=== PATIENT | male | born 1985 | race Caucasian/White ===

== ENCOUNTER 2023-08-11 14:48 | Inpatient (IN) | payer OTHER ==
[2023-08-11] MEDS ORDERED: NA CHLORIDE 0.9% 1,000 ML ONE (16:13)
[2023-08-11] MEDS ORDERED: KETOROLAC 30 MG/ML INJ ONE (16:13)
[2023-08-11 16:19] LABS: Absolute Basophils 0.1 K/uL (0-0.5); Absolute Eosinophils 0.1 K/uL (0-0.5); Absolute Lymphocytes (CBC) 0.9 K/uL (0.7-4.9); Absolute Monocytes 1.6 K/uL (0.1-1.3); Absolute Neutrophil 21.1 K/uL (1.8-8.0); Basophils % 0.2 % (0-1.3); Eosinophils % 0.3 % (0-4.4); Hematocrit 43.7 % (39.6-49.0); Hemoglobin 14.6 g/dL (13.6-17.9); Lymphocytes % 3.9 % (15.3-44.8); MCH 29.1 pg (27.0-35.0); MCHC 33.5 g/dL (32.0-36.0); MCV 87.1 fL (80-100); MPV 8.4 fL (7.6-11.3); Monocytes % 6.7 % (3.3-12.3); Neutrophils % 88.9 % (41.7-73.7); Nucleated Red Blood Cells % 0.1 % (0-0); Platelets 312 thou/uL (152-406); RBC Red Blood Cell Count 5.02 M/uL (4.33-5.43); Red Cell Distribution Width 13.4 % (12.1-15.2)
[2023-08-11 16:39] LABS: Albumin 3.7 g/dL (3.4-5.0); Albumin/Globulin Ratio 0.8 (1.1-1.8); Anion Gap 10.7 mEq/L (5.0-15.0); Bilirubin Total 1.9 mg/dL (0.2-1.0); Globulin 4.4 g/dL (2.3-3.5); Potassium 3.7 mEq/L (3.5-5.1); Protein, Total 8.1 g/dL (6.4-8.2)
--- NOTE | 2023-08-11 17:21 | RAD REPORT ---
EXAM DESCRIPTION: US - Extremity Venous Uni Ltd - 08/11/2023 5:15 pm CLINICAL HISTORY: Pain, swelling COMPARISON: None. TECHNIQUE: Real-time sonographic evaluation of the left lower extremity deep venous system was perfo rmed. FINDINGS: Normal compressibility, flow augmentation, phasic flow and spontaneous flow is identified in the left lower extremity deep venous system. No intraluminal filling defects seen. IMPRESSION: No DVT in the left lower extremity.
--- NOTE | 2023-08-11 17:25 | RAD REPORT ---
EXAM DESCRIPTION: US - Extremity Nonvascular Limited - 08/11/2023 5:15 pm CLINICAL HISTORY: left lower leg swelling COMPARISON: No comparisons FINDINGS: Focused ultrasound at the medial left calf at the area of concern. Complex cystic and solid structure measuring approximately 12 cm in maximal dimension which has both a simple fluid component as well as what is probably dependent debris. This does not have any blood f low within it. IMPRESSION: Complex fluid collection at the site of concern measures approximately 12 cm in long axi s. This may represent a subacute hematoma with layering debris/clot.
[2023-08-11] MEDS ORDERED: ACETAMINOPHEN 500 MG TAB ONE (17:31)
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
--- NOTE | 2023-08-11 17:43 | ER ---
Nurse's Notes [facility] Name: Tripp Cisneros Age: 38 yrs Sex: Male : 1985 Arrival Date: 08/11/2023 Time: 14:48 Bed 19 Private MD: Diagnosis: Cellulitis of left lower limb;Cutaneous abscess of left lower limb Presentation: 08/10 15:19 Chief complaint: LLE pain, redness, and swelling x 1 week. Coronavirus screen: At this hb time, the client does not indicate any symptoms associated with coronavirus-19. Ebola Screen: No symptoms or risks identified at this time. Initial Sepsis Screen: Does the patient meet any 2 criteria? No. Patient's initial sepsis screen is negative. Does the patient have a suspected source of infection? No. Patient's initial sepsis screen is negative. Risk Assessment: Do you want to hurt yourself or someone else? Patient reports no desire to harm self or others. Onset of symptoms was August 05, 2023. 15:19 Method Of Arrival: Ambulatory hb 15:19 Acuity: HERNAN 3 hb Triage Assessment: 15:21 General: Appears in no apparent distress. Behavior is calm, cooperative. Pain: Pain hb currently is 8 out of 10 on a pain scale. Neuro: Level of Consciousness is awake, alert, obeys commands, Oriented to person, place, time, situation. Cardiovascular: Patient's skin is warm and dry. Respiratory: Respiratory effort is even, unlabored, Respiratory pattern is regular, symmetrical. Musculoskeletal: LLE swelling and redness Reports LLE pain, redness, and swelling. Historical: - Allergies: 15:20 No Known Allergies; hb - Home Meds: 15:20 None [Active]; hb - PMHx: 15:20 None; hb - PSHx: 15:20 None; hb - Immunization history:: Adult Immunizations up to date. - Infectious Disease History:: Denies. - Social history:: Smoking status: Patient denies any tobacco usage or history of. Screenin:22 [facility] ED Fall Risk Assessment (Adult) History of falling in the last 3 months, tl4 including since admission No falls in past 3 months (0 pts) Confusion or Disorientation No (0 pts) Intoxicated or Sedated No (0 pts) Impaired Gait No (0 pts) Mobility Assist Device Used No (0 pt) Altered Elimination No (0 pt) Score/Fall Risk Level 0 - 2 = Low Risk Oriented to surroundings, Maintained a safe environment, Educated pt \T\ family on fall prevention, incl call for assistance when getting out of bed, Assessed \T\ reinforced patient's understanding of fall precautions. Abuse screen: Denies threats or abuse. Denies injuries from another. Nutritional screening: No deficits noted. Tuberculosis screening: No symptoms or risk factors identified. Assessment: 16:35 Reassessment: Patient and/or family updated on plan of care and expected duration. Pain tl4 level reassessed. Patient is alert, oriented x 3, equal unlabored respirations, skin warm/dry/pink. Pt denies any needs at this time. Family at bedside. Will continue to monitor. 17:35 Reassessment: Patient and/or family updated on plan of care and expected duration. Pain tl4 level reassessed. Patient is alert, oriented x 3, equal unlabored respirations, skin warm/dry/pink. Patient states symptoms have improved. 19:09 Reassessment: Patient and/or family updated on plan of care and expected duration. Pain tl4 level reassessed. Patient is alert, oriented x 3, equal unlabored respirations, skin warm/dry/pink. Surgery here to take patient. Pt and family updated by surgery staff. Vital Signs: 15:19 BP 159 / 78; Pulse 110; Resp 16; Temp 97.9(TE); Pulse Ox 100% on R/A; Weight 131.54 kg; hb Height 6 ft. 1 in. ; Pain 8/10; 16:30 BP 149 / 94; Pulse 114; Resp 20; Pulse Ox 98% on R/A; tl4 17:42 BP 151 / 94; Pulse 112; Resp 20; Pulse Ox 99% on R/A; tl4 18:21 BP 134 / 90; Pulse 108; Resp 18; Pulse Ox 97% on R/A; tl4 19:07 BP 139 / 95; Pulse 106; Resp 20; Temp 98.9(O); Pulse Ox 99% on R/A; Pain 0/10; tl4 15:19 Body Mass Index 38.26 (131.54 kg, 185.42 cm) hb 15:19 Pain Scale: Adult hb 19:07 Pain Scale: Adult tl4 ED Course: 14:51 Patient arrived in ED. ra3 14:53 Vasu Hammond PA is PHCP. cp 14:53 Vasu Lam MD is Attending Physician. cp 15:20 Arm band placed on. hb 15:21 Triage completed. hb 15:44 Srini Carnes, RN is Primary Nurse. tl4 16:10 CBC with Diff Sent. tl4 16:10 CMP Sent. tl4 16:10 Initial lab(s) drawn, by me, sent to lab. Inserted saline lock: 22 gauge in left tl4 forearm, using aseptic technique. Blood collected. 16:21 CMP Sent. tl4 17:18 US Extrmty Nonvasular Limited In Process Unspecified. EDMS 17:18 US Extremity Venous Unilateral Ltd In Process Unspecified. EDMS 17:42 Tushar Valentine MD is Hospitalizing Provider. cp 17:47 XRAY Tib Fib LEFT In Process Unspecified. EDMS 18:22 Patient has correct armband on for positive identification. Placed in gown. Bed in low tl4 position. Call light in reach. Side rails up X 1. Adult w/ patient. Provided Education on: ed process, call marte. Client placed on continuous cardiac and pulse oximetry monitoring. NIBP monitoring applied. Door closed. Noise minimized. Moved to private room. Warm blanket given. Pillow given. 18:23 No provider procedures requiring assistance completed. tl4 18:40 Urinalysis W/Microscopic Sent. tl4 19:04 Urinalysis w/ reflexes Sent. tl4 19:05 Ptt, Activated Sent. tl4 19:05 PT-INR Sent. tl4 19:05 Blood Culture Adult (2) Sent. tl4 19:05 Lactate w/ 2H reflex if indic. Sent. tl4 19:06 Repeat lab(s) drawn. by me, sent to lab. tl4 19:12 Patient admitted, IV remains in place. tl4 Administered Medications: 16:20 Drug: Ketorolac IVP 15 mg IVP once Route: IVP; Site: left forearm; tl4 17:34 Follow up: Response: No adverse reaction; Pain is decreased tl4 16:21 Drug: NS 0.9% IV 1000 ml IV at 1 bolus Per protocol; 1000 mL bolus Route: IV; Rate: 1 tl4 bolus; Site: left forearm; Delivery: Primary tubing; 17:34 Follow up: Response: No adverse reaction; IV Status: Completed infusion; IV Intake: tl4 1000ml 19:06 Follow up: Response: No adverse reaction; IV Status: Completed infusion; IV Intake: tl4 1000ml 17:32 Drug: Acetaminophen PO 1000 mg PO once Route: PO; tl4 18:23 Follow up: Response: No adverse reaction; Pain is decreased tl4 19:04 Drug: ceFAZolin IVPB 2 grams IVPB once over 30 mins; (mix in 100 mL NS) Route: IVPB; tl4 Infused Over: 30 mins; Site: left forearm; 19:06 Follow up: Response: No adverse reaction; IV Status: Infusion continued tl4 19:05 Drug: vancoMYCIN IVPB 1.5 grams IVPB at calculated rate once Route: IVPB; Rate: tl4 calculated rate; Site: left forearm; Delivery: Primary tubing; 19:06 Follow up: Response: No adverse reaction; IV Status: Infusion continued tl4 Medication: 18:23 VIS not applicable for this client. tl4 Intake: 17:34 IV: 1000ml; Total: 1000ml. tl4 19:06 IV: 1000ml; Total: 2000ml. tl4 Outcome: 17:42 Decision to Hospitalize by Provider. cp 19:09 Admitted to OR accompanied by nurse, via wheelchair, tl4 19:09 Condition: stable 19:09 Instructed on the need for admit, 19:18 Patient left the ED. jb4 Signatures: Dispatcher [employer] EDMS Vasu Hammond PA PA cp Elizabeth Squires RN RN hb Bryson, James, RN RN jb4 Srini Carnes RN RN tl4 Janee Arreola ra3 Corrections: (The following items were deleted from the chart) 15:21 15:19 Pulse Ox 100% RA; Temp 97.9F Temporal; hb hb
[2023-08-11 17:51] LABS: Blood Morphology Comment NOTED (NOT SEEN); Hypochromasia 1+; Platelet Estimate ADEQ; White Blood Cell Scan OK (OK)
--- NOTE | 2023-08-11 17:55 | RAD REPORT ---
EXAM DESCRIPTION: RAD - Tib Fib Left - 08/11/2023 5:45 pm CLINICAL HISTORY: Swelling;Pain COMPARISON: No comparisons FINDINGS/IMPRESSION: No acute fracture. No malalignment. No significant focal degenerative changes.
[2023-08-11] MEDS ORDERED: ONDANSETRON 4 MG/2 ML VIAL IV PRN (18:28)
[2023-08-11] MEDS ORDERED: NA CHLORIDE 0.9% 250 ML ONE (18:30)
[2023-08-11] MEDS ORDERED: NA CHLORIDE 0.9% 100 ML ONE (18:30)
[2023-08-11] MEDS ORDERED: VANCOMYCIN 500 MG/VIAL ONE (18:30)
[2023-08-11] MEDS ORDERED: VANCOMYCIN 1 GM/VIAL ONE (18:30)
[2023-08-11] MEDS ORDERED: CEFAZOLIN SODIUM 2 GM/VIAL ONE (18:31)
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
[2023-08-11] MEDS: LIDOCAINE HCL/EPINEPHRINE 20 ML MDV ONE (18:45)
[2023-08-11] MEDS: NA CHLORIDE 0.9% 1,000 ML IV SCH (19:00)
[2023-08-11] MEDS ORDERED: FENTANYL CITR 100 MCG/2 ML ONE ×2 (19:01→19:39)
[2023-08-11] MEDS ORDERED: propofoL 200 MG/20 ML VIAL IV ONE ×2 (19:01→19:32)
[2023-08-11] MEDS ORDERED: LIDOCAINE 2% MPF 5 ML VIAL ONE (19:01)
[2023-08-11] MEDS ORDERED: MIDAZOLAM HCL 2 MG/2 ML INJ ONE (19:01)
[2023-08-11] MEDS: Ringers Lactate 1,000 ML IV ONE (19:15)
[2023-08-11 19:20] LABS: PT Prothrombin Time 15.4 SECONDS (9.5-12.5); PTT, Activated Partial Thromb 30.2 SECONDS (24.3-36.9); Protime INR 1.41
[2023-08-11 19:20] LABS: Specific Gravity > 1.030 (1.005-1.030); Sqamous Epithelial <5 /HPF (None Seen); Urine Bacteria None Seen /HPF (<20); Urine Bilirubin 1+ (Negative); Urine Blood Negative (Negative); Urine Clarity Turbid (Clear); Urine Color Dark-Yellow (Yellow); Urine Culture Reflex Order NOT NEEDED; Urine Glucose NEGATIVE (Negative); Urine Ketones 2+ (Negative); Urine Micro Reflex YN NO BILL MICROSCOPIC; Urine Mucus 3+ /HPF (None Seen); Urine Nitrite NEGATIVE (Negative); Urine Protein 1+ (Negative); Urine RBC None Seen /HPF (None Seen); Urine Urobilinogen 4+ (Over) (Normal); Urine WBC <5 /HPF (<5); Urine pH 6.5 (5.0-7.0)
[2023-08-11] MEDS ORDERED: ONDANSETRON 4 MG/2 ML VIAL ONE (19:33)
--- NOTE | 2023-08-11 19:58 | P.OP ---
Preoperative diagnosis: LEFT lower leg Abscess Postoperative diagnosis: LEFT lower leg Abscess Primary procedure: Incision and Drainage of LEFT lower leg Abscess Anesthesia: GETA Estimated blood loss: ~ 5cc Specimen: Cultures Findings: ~ 12 cm multiloculated abscess of LEFT lower leg Complications: None Transferred to: Recovery Room Condition: Good
[2023-08-11] MEDS: VANCOMYCIN 500 MG in NA CHLORIDE 0.9% 100 ML IVPB ONE (20:30)
--- NOTE | 2023-08-11 20:54 | OP ---
Date of Procedure: 08/11/2023 Surgeon: Malachi Mcfarland MD, Preoperative Diagnosis: Left lower leg abscess. Postoperative Diagnosis: Left lower leg abscess. Procedure Performed: Incision and drainage of a complex multiloculated left lower extremity abscess. Anesthesia: General endotracheal. Estimated Blood Loss: Less than 5 cc. Specimen: Culture sent both aerobic, anaerobic, speciation. Findings: Approximately 12 cm multiloculated abscess of the left lower leg. Complications: None. Disposition: Patient was transferred to recovery room in good condition. Procedure In Detail: After informed consent was obtained, patient was brought to the operating room, prepped in the usual sterile fashion. After adequate anesthesia was achieved, I palpated the area t he medial lower extremity along the border of the gastrocnemius muscle on the medial aspect. Fluctua nce was appreciated. I then incised this area sharply with an 11 blade ultimately encountering a fabian y pressurized obviously infected abscess cavity, which came out under significant pressure. This was cultured both aerobic, anaerobic speciation. At this point. I extended my incision for approximatel y 6 cm and digitized the area breaking multiple loculations with additional abscess cavities encounte red. After I completely broke up all loculations with digital manipulation, I irrigated the area usi ng a pulse lavage device for approximately an 1-1/2 L of sterile saline. I then achieved hemostasis with electrocautery and packed the wound with Vashe-soaked Kerlix and sterile dressing. We used to w rap the leg and elevate. The patient tolerated the procedure well without evidence of complication a nd transferred to PACU in good condition. All counts were correct at the end of the case. MICHAEL/HERBERT Voice ID: [id number] Report ID: [id number]
[2023-08-11] MEDS ORDERED: VANCOMYCIN 1 GM in NA CHLORIDE 0.9% 250 ML IVPB SCH ×2 (21:00→23:00)
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
[2023-08-11] MEDS ORDERED: MORPHINE 2 MG/ML SYR IV PRN (22:04)
[2023-08-11] MEDS: HYDROCODONE/APAP 5/325 MG TAB PO PRN (22:49)
[2023-08-12] MEDS: ACETAMINOPHEN 325 MG TABLET PO PRN (04:42)
[2023-08-12 06:33] LABS: Absolute Eosinophils 0.2 K/uL (0-0.5); Absolute Lymphocytes (CBC) 0.5 K/uL (0.7-4.9); Absolute Monocytes 1.2 K/uL (0.1-1.3); Absolute Neutrophil 17.8 K/uL (1.8-8.0); Basophils % 0.1 % (0-1.3); Eosinophils % 0.9 % (0-4.4); Hematocrit 37.5 % (39.6-49.0); Hemoglobin 12.7 g/dL (13.6-17.9); Lymphocytes % 2.7 % (15.3-44.8); MCH 29.4 pg (27.0-35.0); MCHC 33.9 g/dL (32.0-36.0); MCV 86.8 fL (80-100); MPV 8.5 fL (7.6-11.3); Neutrophils % 90.3 % (41.7-73.7); Platelets 289 thou/uL (152-406); RBC Red Blood Cell Count 4.32 M/uL (4.33-5.43); Red Cell Distribution Width 13.2 % (12.1-15.2)
[2023-08-12 06:51] LABS: Albumin 2.6 g/dL (3.4-5.0); Albumin/Globulin Ratio 0.7 (1.1-1.8); Anion Gap 10.6 mEq/L (5.0-15.0); Bilirubin Total 1.6 mg/dL (0.2-1.0); Globulin 3.9 g/dL (2.3-3.5); Potassium 3.6 mEq/L (3.5-5.1); Protein, Total 6.5 g/dL (6.4-8.2)
[2023-08-12] MEDS: VANCOMYCIN 2 GM in NA CHLORIDE 0.9% 500 ML IVPB SCH ×2 (09:00→11:10)
[2023-08-12] MEDS: ENOXAPARIN 40 MG/0.4 ML SQ SCH (09:43)
[2023-08-12] MEDS: CEFTRIAXONE 1,000 MG in NA CHLORIDE 0.9% 50 ML IVPB SCH (09:43)
--- NOTE | 2023-08-12 10:52 | P.PN ---
Subjective Date of Service: 08/12/23 Chief Complaint: Abscess LLE Admitted with abscess, pain and swelling to the left lower extremity surgery to evaluate Teach family on dressing changes, - Physical Exam General: Alert, In no apparent distress, Oriented x3, Cooperative HEENT: Atraumatic, Normocephalic Neck: Supple, 2+ carotid pulse no bruit Respiratory: Clear to auscultation bilaterally, Normal air movement Cardiovascular: Regular rate/rhythm, Normal S1 S2 Capillary refill: <2 Seconds Gastrointestinal: Soft and benign, W/out hepatosplenomegaly, No tenderness Musculoskeletal: Swelling, Erythema, Tenderness, Warmth Integumentary: Tenderness/swelling, Erythema, Warmth Neurological: Normal speech, Normal strength at 5/5 x4 extr, Cranial nerves 3-12 intact, Normal reflexes 2+, Normal affect Lymphatics: No axilla or inguinal lymphadenopathy Review of Systems Per HPI Physical Examination - Vital Signs Temperature: 98.0 F Blood Pressure: 131/60 Pulse: 111 Respirations: 14 Pulse Ox (%): 93 - Studies Laboratory Data (last 24 hrs) 08/11/23 08/11/23 16:09 16:09 WBC 23.70 H Hgb 14.6 Hct 43.7 Plt Count 312 Sodium 136 Potassium 3.7 BUN 12 Creatinine 1.13 Glucose 119 H Total Bilirubin 1.9 H AST 13 L ALT 30 Alkaline Phosphatase 89 Assessment And Plan - Plan Assessment plan Left lower extremity cellulitis versus abscess Surgery consulted S/p debridement Ultrasounds negative for DVT Pain control Started on IV antibiotic vancomycin, ceftriaxone Continue IV antibiotic for now Follow wound cultures, Teach family to do dressing changes, Will need to follow-up with surgery in 1 week Leukocytosis Continue antibiotics Will obtain cultures Change antibiotic as per sensitivity GI/DVT prophylaxis Discharge Plan: Home - Code Status/Comfort Care Code Status: Full Code Critical Care: No Time Spent Managing PTS Care (In Minutes): 35
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
[2023-08-12] MEDS: MORPHINE 4 MG/ML SYR IV PRN (14:11)
--- NOTE | 2023-08-12 14:12 | EKG ---
Test Date: 2023-08-11 Test Time: 18:30:27 Union Organiser: KRISTINA MEASUREMENT RESULTS: Intervals: Rate: 105 WI: 112 QRSD: 100 QT: 356 QTc: 470 [place]: P: 59 WI: 112 QRS: 88 T: 56 INTERPRETIVE STATEMENTS: Sinus tachycardia Otherwise normal ECG No previous ECG available for comparison Electronically Signed On 08-12-23 14:10:00 CDT by Yimi Dunn
[2023-08-12] MEDS: FUROSEMIDE 40 MG/4 ML VIAL ONE (23:56)
[2023-08-13] MEDS: FUROSEMIDE 40 MG/4 ML VIAL IV ONE (00:04)
[2023-08-13] MEDS: ALBUTEROL 2.5 MG/3 ML NEB SOL NEB ONE (00:38)
[2023-08-13] MEDS: IPRATROPIUM BROM 0.5MG/2.5ML NEB ONE (00:38)
[2023-08-13] MEDS: ALBUTEROL 2.5 MG/3 ML NEB SOL NEB PRN (01:29)
[2023-08-13] MEDS: IPRATROPIUM BROM 0.5MG/2.5ML NEB PRN (01:29)
[2023-08-13 06:35] LABS: Absolute Eosinophils 0.1 K/uL (0-0.5); Absolute Monocytes 1.2 K/uL (0.1-1.3); Absolute Neutrophil 28.2 K/uL (1.8-8.0); Basophils % 0.1 % (0-1.3); Eosinophils % 0.5 % (0-4.4); Hematocrit 34.8 % (39.6-49.0); Hemoglobin 11.9 g/dL (13.6-17.9); Lymphocytes % 3.2 % (15.3-44.8); MCH 29.7 pg (27.0-35.0); MCHC 34.1 g/dL (32.0-36.0); MCV 86.9 fL (80-100); MPV 8.2 fL (7.6-11.3); Neutrophils % 92.2 % (41.7-73.7); Nucleated Red Blood Cells % 0.1 % (0-0); Platelets 341 thou/uL (152-406); Red Cell Distribution Width 13.6 % (12.1-15.2)
[2023-08-13 06:54] LABS: Albumin 2.1 g/dL (3.4-5.0); Albumin/Globulin Ratio 0.5 (1.1-1.8); Anion Gap 9.8 mEq/L (5.0-15.0); Globulin 4.2 g/dL (2.3-3.5); Potassium 3.8 mEq/L (3.5-5.1); Protein, Total 6.3 g/dL (6.4-8.2)
[2023-08-13 08:17] LABS: Band Neutrophils 9 % (0-1); Differential Total Cells Count 100; Segmented Neutrophils 80 % (40-80)
[2023-08-13 08:18] LABS: Blood Morphology Comment NOT SEEN (NOT SEEN); Lymphocytes 3 % (15-42); Monocytes 6 % (0-10); Myelocytes 1 % (0-0); Platelet Estimate ADEQ; Platelets Clumped FIBRIN PRESENT
[2023-08-13] MEDS: PIPER TAZO 3.375 GM in NA CHLORIDE 0.9% 100 ML IV SCH (09:00)
[2023-08-13] MEDS: NA CHLORIDE 0.9% 1,000 ML IV SCH (09:00)
--- NOTE | 2023-08-13 11:15 | RAD REPORT ---
EXAM DESCRIPTION: CT - Chest For Pe Angio - 08/13/2023 11:09 am CLINICAL HISTORY: Chest pain. Hemoptysis COMPARISON: No comparisons TECHNIQUE: CT angiogram of the pulmonary arteries was performed with MIP. All CT scans are performed using dose optimization technique as appropriate and may include automated exposure control or mA/KV adjustment according to patient size. FINDINGS: No evidence of pulmonary thromboembolism. No acute aortic finding demonstrated. Large areas of lung consolidation is seen in the bilateral lower lobes as well as the posterior aspec t of both upper lobes. This may represent pulmonary edema or pneumonia. Small bilateral pleural effusions. No concerning bony finding. IMPRESSION: No evidence of pulmonary thromboembolism. Large areas of lung consolidation in both lower lobes as well as the posterior aspect of both upper l obes may represent pulmonary edema or pneumonia.
--- NOTE | 2023-08-13 11:16 | RAD REPORT ---
EXAM DESCRIPTION: Chest Single View [facility]: XR CHEST 1 VIEW CLINICAL HISTORY: 38 years Male, desaturation, sortness of breath COMPARISON: None. FINDINGS: Single portable AP view of the chest. Trachea is midline. Normal size of the cardiac size diffuse bilateral interstitial opacities patchy parenchymal opacities most pronounced in the right mi d to upper lung. No pleural effusion or pneumothorax. No acute osseous abnormality IMPRESSION: Diffuse bilateral interstitial and patchy parenchymal opacities which could be due to in fection or edema. Electronically signed by: Elif Driscoll MD 08/13/2023 01:09 AM CDT RP Due to temporary technical issues with the PACS/Fluency reporting system, reports are being signed by the in house radiologist without review as a courtesy to ensure prompt reporting. The interpreting r adiologist is fully responsible for the content of the report.
[2023-08-13 11:45] LABS: Absolute Eosinophils 0.1 K/uL (0-0.5); Absolute Lymphocytes (CBC) 0.6 K/uL (0.7-4.9); Absolute Monocytes 1.2 K/uL (0.1-1.3); Absolute Neutrophil 21.1 K/uL (1.8-8.0); Basophils % 0.1 % (0-1.3); Eosinophils % 0.5 % (0-4.4); Hematocrit 37.3 % (39.6-49.0); Hemoglobin 12.7 g/dL (13.6-17.9); Lymphocytes % 2.6 % (15.3-44.8); MCH 29.4 pg (27.0-35.0); MCV 86.5 fL (80-100); Monocytes % 5.2 % (3.3-12.3); Neutrophils % 91.6 % (41.7-73.7); Platelets 369 thou/uL (152-406); RBC Red Blood Cell Count 4.32 M/uL (4.33-5.43); Red Cell Distribution Width 13.3 % (12.1-15.2)
[2023-08-13 12:13] LABS: ALT/SGPT 22 U/L (16-61); Albumin 2.3 g/dL (3.4-5.0); Albumin/Globulin Ratio 0.5 (1.1-1.8); Alkaline Phosphatase 104 U/L (45-117); Anion Gap 7.5 mEq/L (5.0-15.0); BUN Blood Urea Nitrogen 7 mg/dL (7-18); Bicarbonate 27 mEq/L (21-32); Bilirubin Total 1.1 mg/dL (0.2-1.0); Globulin 4.6 g/dL (2.3-3.5); Glomerular Filtration Rate 108 ml/min (=/>90); Glucose Level 132 mg/dL (74-106); Magnesium 2.3 mg/dL (1.6-2.4); NT PRO-BNP 511 pg/mL (<125); Potassium 3.5 mEq/L (3.5-5.1); Protein, Total 6.9 g/dL (6.4-8.2); Sodium Level 132 mEq/L (136-145)
[2023-08-13 12:19] LABS: AST/SGOT < 10 U/L (15-37)
[2023-08-13] MEDS: AMPICILLIN/SULBACT 3 GM in NA CHLORIDE 0.9% 100 ML IV SCH (14:10)
--- NOTE | 2023-08-13 16:10 | P.PN ---
Subjective Date of Service: 08/13/23 Chief Complaint: Abscess LLE Patient had an episode of shortness of breath last night requiring oxygen supplementation and continues to have some minimal shortness of breath. He has no complaints related to his wound. Physical Examination - Vital Signs Temperature: 98.1 F Blood Pressure: 136/75 Pulse: 105 Respirations: 18 Pulse Ox (%): 96 - Physical Exam General: Alert, In no apparent distress, Oriented x3, Cooperative Respiratory: Normal air movement, Diminished Integumentary: Other (Wound of left lower extremity remains packed well at this point cellulitis is improving but not resolved swelling continues to be present slightly improved from prior however patient does not have his leg elevated as recommended) Assessment And Plan - Current Problems (Diagnosis) (1) Left leg cellulitis Current Visit: Yes Status: Acute Plan: -CT scan pending -Continue oxygen supplementation -Continue antibiotic treatment. -Continue daily dressing changes with Vashe. -Wrap and elevate lower extremity. -Continue medical management per primary team.
[2023-08-14 06:07] LABS: Absolute Basophils 0.2 K/uL (0-0.5); Absolute Eosinophils 0.2 K/uL (0-0.5); Absolute Lymphocytes (CBC) 0.8 K/uL (0.7-4.9); Absolute Monocytes 1.1 K/uL (0.1-1.3); Absolute Neutrophil 20.8 K/uL (1.8-8.0); Eosinophils % 0.8 % (0-4.4); Hematocrit 34.8 % (39.6-49.0); Hemoglobin 11.5 g/dL (13.6-17.9); Lymphocytes % 3.4 % (15.3-44.8); MCH 28.5 pg (27.0-35.0); MCHC 32.9 g/dL (32.0-36.0); MCV 86.6 fL (80-100); MPV 8.1 fL (7.6-11.3); Monocytes % 4.6 % (3.3-12.3); Neutrophils % 90.2 % (41.7-73.7); Platelets 380 thou/uL (152-406); RBC Red Blood Cell Count 4.02 M/uL (4.33-5.43); Red Cell Distribution Width 13.6 % (12.1-15.2)
[2023-08-14 06:26] LABS: Albumin 2.1 g/dL (3.4-5.0); Albumin/Globulin Ratio 0.5 (1.1-1.8); Anion Gap 6.3 mEq/L (5.0-15.0); Bilirubin Total 0.9 mg/dL (0.2-1.0); Globulin 4.4 g/dL (2.3-3.5); Magnesium 2.2 mg/dL (1.6-2.4); Potassium 3.3 mEq/L (3.5-5.1); Protein, Total 6.5 g/dL (6.4-8.2)
--- NOTE | 2023-08-14 09:24 | RAD REPORT ---
[facility] 5[facility] CLINICAL HISTORY: pneumonia COMPARISON: Chest Single View dated 08/13/2023; Chest For Pe Angio dated 08/13/2023 TECHNIQUE: Portable AP view of the chest. FINDINGS: Stable patchy airspace opacities in the right lung. Progressive left basilar patchy airspa ce opacification. No pneumothorax or effusion. The cardiomediastinal contours are unremarkable. IMPRESSION: Patchy bilateral airspace opacities, with some progression of the left base, may reflect pneumonia or pulmonary edema.
[2023-08-14] MEDS: ACETAMINOPHEN 325 MG TABLET PO PRN (15:00)
[2023-08-14] MEDS: VANCOMYCIN 1.75 GM in NA CHLORIDE 0.9% 500 ML IVPB SCH (16:27)
[2023-08-14] MEDS ORDERED: AYR NASAL SALINE DROPS NAS PRN (18:05)
[2023-08-14] MEDS: METHYLPREDNISOLONE 40 MG INJ IV ONE (18:52)
[2023-08-14] MEDS ORDERED: ALBUTEROL 2.5 MG/3 ML NEB SOL NEB SCH (19:00)
[2023-08-14 19:03] VITALS: BMI 39.0
[2023-08-14] MEDS: ALBUTEROL 2.5 MG/3 ML NEB SOL NEB SCH (20:37)
[2023-08-14] MEDS: IPRATROPIUM BROM 0.5MG/2.5ML NEB SCH (20:38)
--- NOTE | 2023-08-14 20:49 | P.PN ---
Subjective Date of Service: 08/14/23 Chief Complaint: Abscess LLE Admitted with abscess, pain and swelling to the left lower extremity surgery to evaluate Teach family on dressing changes, XRAY completed overnight IMPRESSION: Diffuse bilateral interstitial and patchy parenchymal opacities which could be due to infection or edema. requiring oxygen, breathing treatments added CT Chest ordered, Small bilateral pleural effusions.No concerning bony finding. IMPRESSION: No evidence of pulmonary thromboembolism. Large areas of lung consolidation in both lower lobes as well as the posterior aspect of both upper lobes may represent pulmonary edema or pneumonia. 7L 95% plan to wean 02 - Physical Exam General: Alert, In no apparent distress, Oriented x3, Cooperative HEENT: Atraumatic, Normocephalic Neck: Supple, 2+ carotid pulse no bruit Respiratory: diminished, nonproductive cough Cardiovascular: Regular rate/rhythm, Normal S1 S2 Capillary refill: <2 Seconds Gastrointestinal: Soft and benign, W/out hepatosplenomegaly, No tenderness Musculoskeletal: Swelling, Erythema, Tenderness, Warmth Integumentary: Tenderness/swelling, Erythema, Warmth Neurological: Normal speech, Normal strength at 5/5 x4 extr, Cranial nerves 3-12 intact, Normal reflexes 2+, Normal affect Lymphatics: No axilla or inguinal lymphadenopathy Review of Systems per HPI Physical Examination - Vital Signs Temperature: 98.3 F Blood Pressure: 131/68 Pulse: 103 Respirations: 20 Pulse Ox (%): 93 Assessment And Plan - Plan Assessment plan Left lower extremity cellulitis versus abscess Surgery consulted S/p debridement Ultrasounds negative for DVT Pain control Started on IV antibiotic vancomycin, ceftriaxone Continue IV antibiotic for now Follow wound cultures, Teach family to do dressing changes, Will need to follow-up with surgery in 1 week Leukocytosis Continue antibiotics Will obtain cultures Change anti acute hypoxic respiratory failure suspected aspiration XRAY completed overnight IMPRESSION: Diffuse bilateral interstitial and patchy parenchymal opacities which could be due to infection or edema. requiring oxygen, 02 7L 95% plan to wean, neb ordered CT Chest ordered, Small bilateral pleural effusions.No concerning bony finding. IMPRESSION: No evidence of pulmonary thromboembolism. Large areas of lung consolidation in both lower lobes as well as the posterior aspect of both upper lobes may represent pulmonary edema or pneumonia. 7L 95% plan to wean 02 GI/DVT prophylaxis Discharge Plan: Home - Code Status/Comfort Care Code Status: Full Code Time Spent Managing PTS Care (In Minutes): 35
--- NOTE | 2023-08-14 20:52 | P.PN ---
Subjective Date of Service: 08/14/23 Chief Complaint: Abscess LLE Admitted with abscess, pain and swelling to the left lower extremity surgery to evaluate Teach family on dressing changes, XRAY completed overnight IMPRESSION: Diffuse bilateral interstitial and patchy parenchymal opacities which could be due to infection or edema. requiring oxygen, 02 7L 95% plan to wean, neb ordered - Physical Exam General: Alert, In no apparent distress, Oriented x3, Cooperative HEENT: Atraumatic, Normocephalic Neck: Supple, 2+ carotid pulse no bruit Respiratory: diminished, nonproductive cough Cardiovascular: Regular rate/rhythm, Normal S1 S2 Capillary refill: <2 Seconds Gastrointestinal: Soft and benign, W/out hepatosplenomegaly, No tenderness Musculoskeletal: Swelling, Erythema, Tenderness, Warmth Integumentary: Tenderness/swelling, Erythema, Warmth Neurological: Normal speech, Normal strength at 5/5 x4 extr, Cranial nerves 3-12 intact, Normal reflexes 2+, Normal affect Lymphatics: No axilla or inguinal lymphadenopathy Physical Examination - Vital Signs Temperature: 98.3 F Blood Pressure: 131/68 Pulse: 103 Respirations: 20 Pulse Ox (%): 93 Assessment And Plan - Plan Assessment plan Left lower extremity cellulitis versus abscess Surgery consulted S/p debridement Ultrasounds negative for DVT Pain control Started on IV antibiotic vancomycin, ceftriaxone Continue IV antibiotic for now Follow wound cultures, Teach family to do dressing changes, Will need to follow-up with surgery in 1 week Leukocytosis Continue antibiotics Will obtain cultures Change antibiotic as per sensitivity acute hypoxic respiratory failure suspected aspiration XRAY completed overnight IMPRESSION: Diffuse bilateral interstitial and patchy parenchymal opacities which could be due to infection or edema. requiring oxygen, 02 7L 95% plan to wean, neb ordered GI/DVT prophylaxis Discharge Plan: Home Critical Care: No Time Spent Managing PTS Care (In Minutes): 35
[2023-08-14] MEDS: FLUTICASONE 50MCG NASAL SPRAY NAS SCH (21:00)
[2023-08-15] MEDS: METHYLPREDNISOLONE 40 MG INJ IV SCH ×2 (00:32→21:32)
[2023-08-15 21:54] LABS: Sqamous Epithelial <5 /HPF (None Seen); Urine Bacteria <20 /HPF (<20); Urine Bilirubin NEGATIVE (Negative); Urine Blood Negative (Negative); Urine Clarity Turbid (Clear); Urine Color Yellow (Yellow); Urine Culture Reflex Order NOT NEEDED; Urine Glucose NEGATIVE (Negative); Urine Ketones TRACE (Negative); Urine Microscopic Reflex YN ORDER UMIC; Urine Mucus Slight /HPF (None Seen); Urine Nitrite NEGATIVE (Negative); Urine Protein TRACE (Negative); Urine RBC <5 /HPF (None Seen); Urine Urobilinogen 1+ (Normal); Urine pH 6.5 (5.0-7.0)
[2023-08-16 06:27] LABS: Absolute Lymphocytes (CBC) 0.8 K/uL (0.7-4.9); Absolute Monocytes 1.3 K/uL (0.1-1.3); Absolute Neutrophil 28.6 K/uL (1.8-8.0); Basophils % 0.1 % (0-1.3); Eosinophils % 0.1 % (0-4.4); Hematocrit 33.3 % (39.6-49.0); Hemoglobin 11.2 g/dL (13.6-17.9); Lymphocytes % 2.7 % (15.3-44.8); MCH 29.5 pg (27.0-35.0); MCHC 33.6 g/dL (32.0-36.0); MCV 87.9 fL (80-100); MPV 8.3 fL (7.6-11.3); Monocytes % 4.2 % (3.3-12.3); Neutrophils % 92.9 % (41.7-73.7); Nucleated Red Blood Cells % 0.1 % (0-0); Platelets 538 thou/uL (152-406); RBC Red Blood Cell Count 3.79 M/uL (4.33-5.43); Red Cell Distribution Width 13.9 % (12.1-15.2)
[2023-08-16 06:48] LABS: Albumin 2.2 g/dL (3.4-5.0); Albumin/Globulin Ratio 0.5 (1.1-1.8); Anion Gap 8.7 mEq/L (5.0-15.0); Bilirubin Total 0.4 mg/dL (0.2-1.0); Globulin 4.4 g/dL (2.3-3.5); Magnesium 2.6 mg/dL (1.6-2.4); Phosphorus 3.6 mg/dL (2.5-4.9); Potassium 3.7 mEq/L (3.5-5.1); Protein, Total 6.6 g/dL (6.4-8.2)
--- NOTE | 2023-08-16 07:13 | RAD REPORT ---
EXAM DESCRIPTION: RAD - Chest Single View - 08/16/2023 5:44 am CLINICAL HISTORY: pneumonia COMPARISON: Chest Single View dated 08/14/2023; Chest Single View dated 08/13/2023; Chest For Pe Angio dated 08/13/2023 FINDINGS: Lines: None. Lungs: Bilateral interstitial and airspace disease. Some of the confluent right upper lobe opacities have modestly improved. Pleural: No significant pleural effusions or pneumothorax. Cardiac: Cardiomegaly. Mediastinum: Within normal limits. Bones: No acute fractures. Other: None IMPRESSION: Bilateral airspace disease consistent with edema and/or pneumonia. Some of the confluent right upper lobe opacities have improved from yesterday.
[2023-08-16 07:44] LABS: Band Neutrophils 3 % (0-1); Differential Total Cells Count 100; Lymphocytes 5 % (15-42); Metamyelocytes 2 % (0-0); Monocytes 11 % (0-10); Segmented Neutrophils 79 % (40-80)
--- NOTE | 2023-08-16 07:44 | P.PN ---
Subjective Date of Service: 08/16/23 Chief Complaint: Abscess LLE Admitted with abscess, pain and swelling to the left lower extremity surgery to evaluate Teach family on dressing changes, XRAY completed overnight IMPRESSION: Diffuse bilateral interstitial and patchy parenchymal opacities which could be due to infection or edema. requiring oxygen, breathing treatments added CT Chest ordered, Small bilateral pleural effusions.No concerning bony finding. IMPRESSION: No evidence of pulmonary thromboembolism. Large areas of lung consolidation in both lower lobes as well as the posterior aspect of both upper lobes may represent pulmonary edema or pneumonia. O2 95% plan to wean 02 prior to - Physical Exam General: Alert, In no apparent distress, Oriented x3, Cooperative HEENT: Atraumatic, Normocephalic Neck: Supple, 2+ carotid pulse no bruit Respiratory: diminished, nonproductive cough, equal unlabored Cardiovascular: Regular rate/rhythm, Normal S1 S2 Capillary refill: <2 Seconds Gastrointestinal: Soft and benign, W/out hepatosplenomegaly, No tenderness Musculoskeletal: Swelling, Erythema, Tenderness, Warmth, left lower extremity with dry dressing, Integumentary: Tenderness/swelling, Erythema, Warmth, wound care Neurological: Normal speech, Normal strength at 5/5 x4 extr, Cranial nerves 3-12 intact, Normal reflexes 2+, Normal affect Lymphatics: No axilla or inguinal lymphadenopathy Review of Systems Per HPI Physical Examination - Vital Signs Temperature: 97.2 F Blood Pressure: 159/77 Pulse: 91 Respirations: 20 Pulse Ox (%): 94 Assessment And Plan - Plan Assessment plan Left lower extremity cellulitis versus abscess Surgery consulted S/p debridement Ultrasounds negative for DVT Pain control Started on IV antibiotic vancomycin, ceftriaxone Continue IV antibiotic for now Follow wound cultures, Teach family to do dressing changes, left lower extremity Will need to follow-up with surgery in 1 week Leukocytosis improving Continue antibiotics Will obtain cultures Change anti acute hypoxic respiratory failure suspected aspiration improving XRAY completed overnight IMPRESSION: Diffuse bilateral interstitial and patchy parenchymal opacities which could be due to infection or edema. requiring oxygen, 02 7L 95% plan to wean, neb ordered CT Chest ordered, Small bilateral pleural effusions.No concerning bony finding. IMPRESSION: No evidence of pulmonary thromboembolism. Large areas of lung consolidation in both lower lobes as well as the posterior aspect of both upper lobes may represent pulmonary edema or pneumonia. 7L 95% plan to wean 02, wean O2 GI/DVT prophylaxis Discharge Plan: Home Time Spent Managing PTS Care (In Minutes): 35
[2023-08-16 07:46] LABS: Anisocytosis 2+; Blood Morphology Comment NOTED (NOT SEEN); Hypochromasia 2+; Platelet Estimate ADEQ
[2023-08-16] MEDS: predniSONE 20 MG TAB PO SCH (08:25)
[2023-08-16] MEDS: FUROSEMIDE 20 MG/ 2ML VIAL IV ONE (08:27)
[2023-08-16 12:08] VITALS: O2SAT 95
[2023-08-16 14:34] VITALS: BP 159/77; TEMP 97.2
== END 2023-08-16 14:23 | disposition home or self-care (01) | DRG 602 ==
LOC: ER 14:48 → ERHOLD 18:28 → 4TH 20:04
PROVIDERS: ADMIT Family Medicine; ATTEND Hospitalist
PROC: 0J9P0ZZ Drainage of Left Lower Leg Subcutaneous Tissue and Fascia, Open Approach (ICD-10-PCS; principal; 2023-08-11 19:30)
DX: L03.116 Cellulitis of left lower limb (principal); J69.0 Pneumonitis due to inhalation of food and vomit; J96.01 Acute respiratory failure with hypoxia; L02.416 Cutaneous abscess of left lower limb; Z79.52 Long term (current) use of systemic steroids; Z79.899 Other long term (current) drug therapy
CPT/HCPCS: 36415; 71045; 71275; 76882; 80053; 80202; 81001; 83605; 83735; 83880; 84100; 84145; 85025; 85610; 85730; 87040; 87070; 87075; 87077; 87186; 87205; 93005; 93971; 94010; 94640; 96361; 96374; 96375; 99285; J0295; J0696; J1650; J1940; J2001; J2250; J2405; J2543; J2704; J2920; J3010; J7030; J7040; J7050; J7120; J7512; J7613; J7644; Q9967